=== PATIENT | male | born 1995 | race African-American/Black ===

== ENCOUNTER 2022-10-12 17:17 | Emergency (ER) | payer SELFPAY ==
[~2022-10-12] VITALS: Ht 188 cm; Wt 108.9 kg
--- NOTE | 2022-10-12 19:39 | NUR ---
Patient discharged to home in stable condition. Written and verbal after care instructions given. Patient verbalizes understanding of instruction.
[2022-10-12] MEDS: IBUPROFEN 400 MG TABLET PO ONE (19:40)
[2022-10-12 19:41] VITALS: BP 148/81
== END 2022-10-12 19:41 | disposition home or self-care (01) ==
LOC: ER 17:19 → EDBD 17:19 → ER 19:41
DX: S39.012A Strain of muscle, fascia and tendon of lower back, initial encounter (principal); S80.01XA Contusion of right knee, initial encounter; S00.83XA Contusion of other part of head, initial encounter; V49.59XA Passenger injured in collision with other motor vehicles in traffic accident, initial encounter; Y93.89 Activity, other specified; Y92.89 Other specified places as the place of occurrence of the external cause; Y99.8 Other external cause status
CPT/HCPCS: 70486-TC; 72131-TC; 73564-TC